=== PATIENT | female | born 1970 | race Caucasian/White ===

== ENCOUNTER 2021-08-09 17:38 | Emergency (ER) | payer BC, SELFPAY ==
--- NOTE | ~2021-08-09 | CT_ITS ---
EXAMINATION: CT brain wo con, CT facial bones wo con DATE: 08/09/2021 20:02 INDICATION: Facial injury and right-sided head pain post fall TECHNIQUE: 1. Computed tomography (CT) of the head was performed without intravenous contrast. Sagittal and dk nal reconstructions were obtained. The mA was adjusted according to patient size. Iterative reconstru ction technique was employed. The dose-length product was 605.33 mGy-cm. 2. CT of the facial bones and maxillofacial region was performed without intravenous contrast. Sagitt al and coronal reconstructions were obtained. Automated exposure control and iterative reconstruction technique were employed. The dose-length product was 310.75 mGy-cm. COMPARISON: None. FINDINGS: Head CT: Small right frontal scalp hematoma. No calvarial fracture. No acute intracranial hemorrhage, acute in farction or abnormal extra axial fluid collection. Ventricles are normal and symmetric. No mass/mass effect. Maxillofacial CT: No maxillofacial fractures. Specifically the mandible, nasal bones, zygomatic arches and santiago of the orbits and paranasal sinuses are intact. Normal alignment at the temporomandibular joints. Nasal sep claudia is midline. The mastoid air cells and middle ear cavities are clear. Mild mucosal thickening at t he floor the right maxillary sinus. Orbits are normal. IMPRESSION: 1. Small right frontal scalp hematoma. No fracture or acute intracranial process. Reviewed, dictated and finalized at location A. SWARE SELECTOR IMPRESSION: 1. Small right frontal scalp hematoma. No fracture or acute intracranial proces s.
--- NOTE | ~2021-08-09 | CT_ITS ---
EXAMINATION: CT cervical spine wo con DATE: 08/09/2021 20:02 INDICATION: Head injury post fall TECHNIQUE: Computed tomography (CT) of the cervical spine was performed without intravenous contrast. Automated exposure control and iterative reconstruction technique were employed. The dose-length pro duct was 169.50 mGy-cm. COMPARISON: None FINDINGS: Slight reversal of the normal cervical lordosis centered at C4-C5. 2 mm retrolisthesis C5 on C6. 1 mm anterolisthesis C4 on C5 and C6 on C7. Vertebral body heights are normal. No fracture. Moderate disc height loss at C5-C6 with severe bilateral uncovertebral osteoarthritis and small posterior disc ost eophyte complex. The former results in mild left-sided and moderate right-sided neural foraminal sten osis at the latter in mild central canal stenosis. Mild disc height loss at C4-C5. Moderate to severe right-sided predominant facet osteoarthritis at C2-C3 and C3-C4 and mild to moderate facet osteoarth ritis throughout the more caudal cervical spine. Cervical soft tissues are unremarkable. Mild right a pical pleural-parenchymal scarring. IMPRESSION: 1. Mild to moderate cervical spondylosis. No acute osseous abnormality. Reviewed, dictated and finalized at location A. HANDISING CONSULTANT
[2021-08-09 17:39] VITALS: BP 116/89; PULSE 63; RESP 18; TEMP 36.2; O2SAT 100
[2021-08-09 19:25] VITALS: BP 117/77; PULSE 69; RESP 14; O2SAT 100
--- NOTE | 2021-08-09 19:26 | ED.HEATRA ---
HPI - Head Injury General Chief complaint: Head Injury Stated complaint: head injury Time Seen by Provider: 08/09/21 19:15 History of Present Illness HPI Narrative: Patient presents with a head injury s/p mechanical fall 3 days ago. States she struck her head on the ground after tripping on a box. Denies LOC. Denies somnolence, confusion, vision changes or vertigo. Has intermittent headaches and nausea. Related Data Home Medications Medication Instructions Recorded Confirmed escitalopram oxalate 10 mg PO DAILY 08/09/21 Allergies Allergy/AdvReac Type Severity Reaction Status Date / Time No Known Allergies Allergy Verified 08/09/21 19:26 Review of Systems Review of Systems: All systems reviewed & are unremarkable except as noted in HPI and below Constitutional: Constitutional: Reports no additional constitutional complaints Eyes: Eyes: Reports no additional eye complaints ENT: Reports system reviewed and no additional complaints, except as documented Cardiovascular: Cardiovascular: Reports no additional cardiovascular complaints Respiratory: Respiratory: Reports no additional respiratory complaints Gastrointestinal: Gastrointestinal: Reports no additional gastrointestinal complaints Genitourinary: Genitourinary: Reports no additional female genitourinary complaints Musculoskeletal: Musculoskeletal: Reports no additional musculoskeletal complaints Integumentary/Breasts: Skin/Breast: Reports system reviewed and no additional complaints, except as docu Neurologic: Reports system reviewed and no additional complaints, except as documented Psychiatric: Psychiatric: Reports no additional psychiatric complaints Endocrine: Endocrine: Reports no additional endocrine complaints Hematologic/Lymphatic: Hematologic/Lymphatic: Reports no additional hematologic/lymphatic complaints Allergic/Immunologic: Allergic/Immunologic: Reports no additional allergic/immunologic complaints Exam Narrative: GENERAL: Well-appearing, well-nourished, and in no acute distress. HEAD: Normocephalic, tenderness with ecchymosis to right scalp/brow EYES: PERRLA and EOMI. ENT: Nares clear, no rhinorrhea or epistaxis. Mucous membranes moist. Oropharynx without tonsillar hypertrophy exudate or other lesions. Bilateral TMs pearly clemente nonbulging NECK: Supple. No adenopathy or masses. No carotid bruits or JVD CHEST: Clear to auscultation. No respiratory distress. No wheezes rales or rhonchi HEART: Regular rate and rhythm. No murmur heard. Normal peripheral pulses. ABDOMEN: Soft, nontender, nondistended, normal active bowel sounds. EXTREMITIES: Normal range of motion. No edema. SKIN: Warm, dry, no rash. NEURO: No focal deficits. Alert and oriented x3. PSYCH: Normal mood and affect. Const: General: no acute distress Orientation/consciousness: patient oriented x3 Eyes: Pupils: Equal, round and reactive pupils present Course Vital Signs Vital signs: Vital Signs Temperature 36.2 C L 08/09/21 17:39 Pulse Rate 63 08/09/21 17:39 Respiratory Rate 18 08/09/21 17:39 Blood Pressure 116/89 08/09/21 17:39 Pulse Oximetry 100 08/09/21 17:39 Temperature 36.2 C L 08/09/21 17:39 Pulse Rate 69 08/09/21 19:25 Respiratory Rate 14 08/09/21 19:25 Blood Pressure 117/77 08/09/21 19:25 Pulse Oximetry 100 08/09/21 19:25 MDM - Head Injury Imaging Data Radiologist's impression: Impressions Face CT 08/09/21 20:18 IMPRESSION: 1. Small right frontal scalp hematoma. No fracture or acute intracranial process. Head CT 08/09/21 20:18 IMPRESSION: 1. Small right frontal scalp hematoma. No fracture or acute intracranial process. Cervical Spine CT 08/09/21 20:44 IMPRESSION: 1. Mild to moderate cervical spondylosis. No acute osseous abnormality. Discharge Plan Discharge Clinical Impression: Head injury without fracture of skull Qualifiers: Encounter type: initial encounter Qual
[2021-08-09 21:23] VITALS: BP 110/81; PULSE 60; RESP 14; O2SAT 100
== END 2021-08-09 21:23 | disposition home or self-care (01) ==
PROVIDERS: Emergency Provider Nurse Practitioner Family
DX: S06.0X0A Concussion without loss of consciousness, initial encounter (principal); W18.09XA Striking against other object with subsequent fall, initial encounter
CPT/HCPCS: 70450; 70486; 72125; 99284

== ENCOUNTER 2022-08-01 10:15 | Outpatient (CLI) | payer BC, OTHER, SELFPAY ==
--- NOTE | ~2022-08-01 | MM_ITS ---
EXAMINATION: MM screening sylvia BI w caden HISTORY: Screening mammogram TECHNIQUE: Craniocaudal and mediolateral oblique 3-D tomosynthesis images were obtained and synthetic 2-D images were generated. CAD analysis was submitted and interpreted. COMPARISON: No prior mammogram is available for comparison at this institution. BREAST PARENCHYMAL COMPOSITION: There are scattered areas of fibroglandular density. FINDINGS: Several circumscribed opacities in the posterior outer mid right breast measuring up to 4.4 mm are most consistent with benign intramammary lymph nodes. There is no evidence of suspicious mass , calcification, or architectural distortion to suggest malignancy in either breast. There has been n o suspicious interval change. IMPRESSION: 1. No mammographic evidence of malignancy. 2. Recommend routine screening mammography in one year. BI-RADS Category 2: Benign finding(s). Reviewed, dictated and finalized at location A. PHYSICIAN
== END 2022-08-01 10:16 | disposition home or self-care (01) ==
DX: Z12.31 Encounter for screening mammogram for malignant neoplasm of breast (principal)
CPT/HCPCS: 77063; 77067

== ENCOUNTER 2023-11-20 08:45 | Outpatient (CLI) | payer BC, OTHER, SELFPAY ==
--- NOTE | ~2023-11-20 | MM_ITS ---
EXAMINATION: MM screening sylvia BI w caden HISTORY: Screening TECHNIQUE: Craniocaudal and mediolateral oblique 3-D tomosynthesis images were obtained and synthetic 2-D images were generated. CAD analysis was submitted and interpreted. COMPARISON: 08/01/2022 BREAST PARENCHYMAL COMPOSITION: There are scattered areas of fibroglandular density. FINDINGS: There are developing asymmetries in the upper outer quadrant of the right breast and lower outer quadrant of the left breast. IMPRESSION: 1. Developing bilateral breast asymmetries. 2. Additional mammographic views and possible breast ultrasound are recommended. BI-RADS Category 0: Incomplete: Needs additional imaging evaluation. Reviewed, dictated and finalized at location B. IMPRESSION: 1. Developing bilateral breast asymmetries. 2. Additional mammographic views and possible breast ultrasound are recommended . BI-RADS Category 0: Incomplete: Needs additional imaging evaluation.
== END 2023-11-20 08:46 | disposition home or self-care (01) ==
PROVIDERS: PCP Family Medicine Sports Medicine
DX: Z12.31 Encounter for screening mammogram for malignant neoplasm of breast (principal); R92.8 Other abnormal and inconclusive findings on diagnostic imaging of breast
CPT/HCPCS: 77063; 77067

== ENCOUNTER 2023-12-12 10:16 | Outpatient (CLI) | payer BC, OTHER, SELFPAY ==
--- NOTE | ~2023-12-12 | MMUS_ITS ---
EXAMINATION: MM diagnostic sylvia BI w caden, US breast BI limited HISTORY: Follow-up bilateral breast abnormalities. TECHNIQUE: Additional 3-D tomosynthesis images of the breasts were performed and synthetic 2-D images were generated. CAD analysis was submitted and interpreted. High resolution limited bilateral breast ultrasound was performed. COMPARISON: None Comparison to multiple prior studies sequentially, with oldest reviewed study dated 08/01/2022. BREAST PARENCHYMAL COMPOSITION: Not dense: There are scattered areas of fibroglandular density. FINDINGS: MAMMOGRAPHIC FINDINGS: There are persistent bilateral breast asymmetries. There is a benign-appearing intramammary lymph nod e in the upper outer quadrant of the right breast. There are no suspicious calcifications or architec tural distortion. ULTRASOUND: Limited right breast ultrasound: There are mildly prominent ducts of the right breast. There is a nor mal-appearing intramammary lymph node at 9:00, 5 cm from the nipple measuring 1 cm. Limited left breast ultrasound: Mildly prominent ducts. Normal appearing 7 mm intramammary lymph node at 3:00, 9 cm from the nipple with fatty hilum. No suspicious mass in either breast to suggest malig rafael. IMPRESSION: 1. No evidence for malignancy in either breast. Benign findings. 2. Routine yearly screening mammogram and regular clinical breast examination are recommended. BI-RADS Category 2: Benign finding(s). Reviewed, dictated and finalized at location B. IMPRESSION: 1. No evidence for malignancy in either breast. Benign findings. 2. Routine yearly screening mammogram and regular clinical breast examination a re recommended. BI-RADS Category 2: Benign finding(s).
== END 2023-12-12 10:17 | disposition home or self-care (01) ==
PROVIDERS: PCP Family Medicine Sports Medicine
DX: R92.8 Other abnormal and inconclusive findings on diagnostic imaging of breast (principal)
CPT/HCPCS: 76642; 77062; 77066; G0279

== ENCOUNTER 2024-10-28 16:43 | Emergency (ER) | payer BC, OTHER, SELFPAY ==
--- NOTE | ~2024-10-28 | XR_ITS ---
EXAMINATION: XR chest 2V Exam Date/Time: 10/28/2024 17:00 CDT HISTORY: CP-epigastric Comparison: None. RESULT: Lines, tubes, and devices: None. Lungs and pleura: No focal consolidation, pleural effusion, or pneumothorax. Minimal bibasilar scar/ atelectasis. Cardiomediastinal silhouette: Unremarkable. Other: No acute osseous or upper abdominal finding. IMPRESSION: No acute cardiopulmonary process. Reviewed, dictated and finalized at location K.
--- NOTE | 2024-10-28 16:46 | ECG_ITS ---
Test Date: 2024-10-28 17:01:19 Measurements Intervals [place] Rate: 86 P: 74 MI: 123 QRS: 66 QRSD: 90 T: 57 QT: 358 QTc: 428 Interpretive Statements SINUS RHYTHM NORMAL ELECTROCARDIOGRAM No previous ECG available for comparison Electronically Signed On 10-29-2024 07:17:11 CDT by Jeffry Waller M.D.
--- OUTSIDE RECORDS SUMMARY | 2024-10-28 16:47 | XMS_ITS | Referral Summary ---
Author Organization [facility] Address [address] [place] [id number] Care Team Providers Care Band Instrument Repairer Name Role Phone Kapil Sommers MD Primary Care Provi nawaf Encounters Date Type Department Care Team Description 10/06/2024 3:15 PM CDT Office Visit [facility] Primary Care at [address] [phone] Kapil Sommers MD Atypical chest pain (Primary Dx); Nausea and vomiting, unspecified vomiting type; Heartburn 10/06/2024 Nurse Triage [facility] Primary Care at [address] [phone] Kapil Sommers MD 09/21/2024 Results Follow-Up [facility] Primary Care at [address] [phone] Kapil Sommers MD 09/17/2024 2:52 PM CDT - 09/17/2024 11:59 PM CDT Hospital Encounter [address] [address] Screening for hyperlipidemia; Vitamin D deficiency Discharge Disposition: Discharge to home or self care 09/17/2024 8:15 AM CDT Lab [facility] Outpatient Lab at [address] [phone] 08/29/2024 Telephone [facility] Cancer Genetics Department [address] [place] [address] Elle Gamez, MS Test Results from Last 3 Months Allergies No known active allergies Medications cholecalciferol , vitamin D3, (VITAMIN D3 ORAL) Take by mouth Active semaglutide (OZEMPIC) 0.25 mg or 0.5 mg(2 mg/1.5 mL) pen injector injection Inject 0.25 mg under the skin every 7 days Active escitalopram (LEXAPRO) 20 mg tablet TAKE 1 TABLET(20 MG) BY MOUTH DAILY 90 tablet 06/15/2024 Active vitamin B complex capsule Take 1 capsule by mouth daily Active pantoprazole DR (PROTONIX) 40 mg EC tabletIndicatio ns:Heartburn Take 1 tablet (40 mg total) by mouth daily 30 tablet 2 10/06/2024 Active Active Problems Problem Noted Date Diagnosed Date Atypical chest pain 10/06/2024 Assessment & Plan (10/06/2024 3:44 PM CDT): Nausea and vomiting 10/06/2024 Assessment & Plan (10/06/2024 3:44 PM CDT): Heartburn 10/06/2024 Assessment & Plan (10/06/2024 3:44 PM CDT): Orders: pantoprazole DR (PROTONIX) 40 mg EC tablet; Take 1 tablet (40 mg total) by mouth daily Need for tetanus booster 07/08/2024 Routine adult health maintenance 07/08/2024 Major depressive disorder, recurrent, mild 04/24 NGOC (generalized anxiety disorder) 04/24/2023 Resolved Problems Problem Noted Date Diagnosed Date Resolved Date Routine physical examination 04/24/2023 04/24/2023 Melanocytic neoplasm of skin 12/05/2016 07/08/2024 Overview (07/07/2024): 04/2015 atyp jcn elijah prolif-L upper chest-[place], 05/2011 atyp cmpd elijah prolif, R ant neck-[place] Actinic keratosis 11/18/2016 03/10/2023 Immunizations Immunization Administration Dates Next Due Influenza, Quadrivalent, Emma l Culture-based MDCK, Preservative Free, Antibiotic Free, Intramuscular 04/14/2021 Influenza, Quadrivalent, Spl it, Preservative Free, Intramuscular 04/24/2023,04/18/2022,04/20/2020,04/21 Influenza, Trivalent, Preser vative Free, Intramuscular 04/25/2024 Influenza, Unspecified 04/25/2024,04/24/2023 Tdap 07/08/2024 ZOSTER Recombinant 11/15/2021,06/28/2021 Social History Tobacco Use Types Packs/Day Years Used Date Smoking Tobacco: Never Smokeless Tobacco: Never Tobacco Cessation:Counseling Given: Not Answered AUDIT-C Answer Date Recorded Q1: How often do you have a drink containing alcohol? Never 07/09/2024 Q2: How many drinks containi ng alcohol do you have on a typical day when you are drinking? Patient does not drink Q3: How often do you have si x or more drinks on one occasion? 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[employer] Not on file Not on file Not on file Last Filed Vital Signs Vital Sign Reading Time Taken Comments Blood Pressure 120/74 10/06/2024 3:10 PM CDT Pulse 80 10/06/2024 3:10 PM CDT Temperature 36.6 C (97.9 F) 10/06/2024 3:10 PM CDT Respiratory Rate 18 07/09/2024 9:02 AM TRANSFORMER SHOP SUPERVISOR Oxygen Saturation 98% 10/06/2024 3:10 PM CDT Inhaled Oxygen Concentration - - Weight 66.7 kg (147 lb 1.6 oz) 10/06/2024 3:10 P M CDT Height 157.5 cm (5' 2 ) 10/06/2024 3:10 PM CDT Body Mass Index 26.9 10/06/2024 3:10 PM CDT Plan of Treatment Not on file Procedures Procedure Name Priority Date/Time Associated Diagnosis Comments EGFR Routine 09/17/2024 12:00 PM CDT Screening for hyperlipidemia VITAMIN D 25 HYDROXY Routine 09/17/2024 12:00 PM CDT Vitamin D deficiency LIPID PANEL Routine 09/17/2024 12:00 PM CDT Screening for hyperlipidemia COMPREHENSIVE METABOLIC PANEL Routine 09/17/2024 12:00 PM CDT Screening for hyperlipidemia HM MAMMOGRAPHY Routine 12/19/2023 8:28 AM CDT STOOL DNA COLOGUARD Routine 06/12/2023 10:00 AM TRANSFORMER SHOP SUPERVISOR Screen for colon cancer HEPATITIS C ANTIBODY Routine 04/24/2023 11:02 AM CDT Routine physical examination Encounter for hepatitis C screening test for low risk patient from Last 3 Months or Most Recently Relevant to Health Maintenance Results * eGFR (09/17/2024 12:00 PM CDT) eGFR >90 >=60 mL/min/1. 73 m2 Comment: Interpretive Data Reference Interval Normal >/= 90 mL/min/1.73m2 Mildly decreased* 60 - 89 mL/min/1.73m2 Mildly to moderately decreased 45 - 59 mL/min/1.73m2 Moderately to severely decreased 30 - 44 mL/min/1.73m2 Severely decreased 15 - 29 mL/min/1.73m2 Kidney Failure < 15 mL/min/1.73m2 *Relative to young adult level Estimated glomerular filtration rate is determined by the 2020 CKD-EPI equation recommended by the National Kidney Foundation (A Unifying Approach to GFR Estimation: Recommendations of the NKF-ASK Task Force on Reassessing the Inclusion of Race in Diagnosing Kidney Disease, JASN 2020). The CKD-EPI equation should not be used for patients with unstable renal function and has not been validated in children and those over 70. Current interpretive data was last reviewed 2021. Blood 09/17/2024 12:0 0 PM CDT 09/17/2024 3:51 PM CDT Kapil Sommers MD LAB BLOOD ORDERABLE S Final Result Performing Organization Address [facility] Co de Phone Number KESHA REYNOSO [address] [facility] [place] [address] * Vitamin D 25 hydroxy (09/17/2024 12:00 PM CDT) Vitamin D 25-OH 65 30 - 80 ng/mL Blood 09/17/2024 12:0 0 PM CDT 09/17/2024 3:32 PM CDT Kapil Sommers MD LAB BLOOD ORDERABLE S Final Result Performing Organization Address [facility] de Phone Number KESHA REYNOSO [address] [address] [facility] [place] [address] * Lipid panel (09/17/2024 12:00 PM CDT) Cholesterol 188 30 - 199 mg/dL Comment: Interpretive Data Ages < or = 19 years Acceptable: <170 mg/dL Borderline high: 170-199 mg/dL High: >or= 200 mg/dL Ages > or = 20 years Desirable: <200 mg/dL Borderline high: 200-239 mg/dL High: >or= 240 mg/dL Literature References: 1. Expert Panel on Integrated Guidelines for Cardiovascular Health and Risk Reduction in Children and Adolescents. Pediatrics 2011;128:S213 2. NCEP Expert Panel. Circulation 2004;110:227 Current Interpretive Data was last revised on 2018. Triglycerides 68 <=149 mg/dL KESHA REYNOSO Comment: Interpretive Data Ages < or = 9 years Acceptable: <75 mg/dL Borderline high: 75-99 mg/dL High: >or= 100 mg/dL Ages 10 to 20 years Acceptable: <90 mg/dL Borderline high: 90-129 mg/dL High: >or= 130 mg/dL Ages > or = 20 years Desirable: <150 mg/dL Borderline high: 150-199 mg/dL High: 200-499 mg/dL Very high: >or= 499 mg/dL Literature References: 1. Expert Panel on Integrated Guidelines for Cardiovascular Health and Risk Reduction in Children and Adolescents. Pediatrics 2011;128:S213 2. NCEP Expert Panel. Circulation 2004;110:227 Current Interpretive Data was last revised on 2018. HDL 82 >=40 mg/dL KESHA REYNOSO Comment: Interpretive Data Ages < or = 19 years Acceptable: >45 mg/dL Borderline low: 40-45 mg/dL Low: <40 mg/dL Ages > or = 20 years Desirable: >or= 60 mg/dL Low: <40 mg/dL Literature References: 1. Expert Panel on Integrated Guidelines for Cardiovascular Health and Risk Reduction in Children and Adolescents. Pediatrics 2011;128:S213 2. NCEP Expert Panel. Circulation 2004;110:227 Current Interpretive Data was last revised on 2018. LDL, calculated 93 <=129 mg/dL KESHA REYNOSO Comment: Interpretive Data Ages < or = 19 years Acceptable: <110 mg/dL Borderline high: 110-129 mg/dL High: >or= 130 mg/dL Ages > or = 20 years Optimal: <100 mg/dL Near optimal: 100-129 mg/dL Borderline high: 130-159 mg/dL High: >160 mg/dL Calculated using the Fabiano LDL-C estimating equation. This equation was implemented on 2024. Prior to this date LDL-C was estimated using the Friedewald equation. Literature References: 1. Expert Panel on Integrated Guidelines for Cardiovascular Health and Risk Reduction in Children and Adolescents. Pediatrics 2011;128:S213 2. NCEP Expert Panel. Circulation 2004;110:227 3. Fabiano Orlando al. MIGUEL Cardiol. 2020 October 23;5(5):540-548. doi: 10.1001/[email or web address] Current Interpretive Data was last revised on 2024. Non-HDL Cholesterol 106 mg/dL KESHA REYNOSO Comment: Interpretive Data Ages < or = 19 years Acceptable: <120 mg/dL Borderline high: 120-144 mg/dL High: >145 mg/dL Ages > or = 20 years When triglycerides are >200 mg/dL, Non-HDL cholesterol is a secondary target of therapy with treatment goals that are 30 mg/dL greater than the LDL cholesterol target. Literature References: 1. Expert Panel on Integrated Guidelines for Cardiovascular Health and Risk Reduction in Children and Adolescents. Pediatrics 2011;128:S213 2. NCEP Expert Panel. Circulation 2004;110:227 Current Interpretive Data was last revised on 2018. Chol/HDL ratio 2 [facility] Blood 09/17/2024 12:0 0 PM CDT 09/17/2024 3:32 PM CDT us Kapil Sommers MD LAB BLOOD ORDERABLE S Final Result [facility] [address] Department [place] [address] * (ABNORMAL) Comprehensive metabolic panel (09/17/2024 12:00 PM CDT) Sodium 138 135 - 145 mmol/L Potassium, pl 4.3 3.3 - 4.9 mmol/L [facility] Chloride 103 97 - 110 mmol/L [facility] CO2 25 22 - 32 mmol/L [facility] Anion gap 10 2 - 15 mmol/L [facility] BUN 19 6 - 25 mg/dL [facility] Creatinine 0.71 0.60 - 1.10 mg/dL [facility] Comment:Icteric sample, test results may be affected. Glucose 86 70 - 199 mg/dL CERNER Comment: Interpretive Data Fasting glucose >/= 126 mg/dl is diagnostic for diabetes. Fasting is defined as no caloric intake for at least 8 hours. Fasting glucose between 100 mg/dl to 125 mg/dl is diagnostic of prediabetes. In a patient with classic symptoms of hyperglycemia or hyperglycemic crisis, a random glucose >/= 200 mg/dl is diagnostic for diabetes. In the absence of unequivocal hyperglycemia, results should be confirmed by repeat testing. The classification and Diagnosis of Diabetes Diabetes Care 2021; 46: S19-S40. Current interpretive data was last revised 2022. Calcium 8.9 8.5 - 10.3 mg/dL [facility] Bilirubin, total 1.3(H) 0.1 - 1.2 mg/dL [facility] Protein, pl 6.6 6.5 - 8.5 g/dL [facility] Albumin 4.0 3.5 - 5.0 g/dL [facility] Alk phos 55 40 - 130 Units/L [facility] ALT 29 7 - 45 Units/L [facility] AST 31 10 - 45 Units/L [facility] Blood 09/17/2024 12:0 0 PM CDT 09/17/2024 3:32 PM CDT Kapil Sommers MD LAB BLOOD ORDERABLE S Final Result KESHA REYNOSO [address] Department [place] [address] * HM MAMMOGRAPHY (12/19/2023 8:28 AM CDT) Mammography Normal Lida Dorman MD HEALTH MAINTENANCE F inal Result * Stool DNA - Cologuard (06/12/2023 10:00 AM TRANSFORMER SHOP SUPERVISOR) Stool DNA - Cologuard Negative Negative [employer] (CLIA #:[id number]) Comment: NEGATIVE TEST RESULT. A negative Cologuard result indicates a low likelihood that a colorectal cancer (CRC) or advanced adenoma (adenomatous polyps with more advanced pre-malignant features) is present. The chance that a person with a negative Cologuard test has a colorectal cancer is less than 1 in 1500 (negative predictive value >99.9%) or has an advanced adenoma is less than 5.3% (negative predictive value 94.7%). These data are based on a prospective cross-sectional study of 10,000 individuals at average risk for colorectal cancer who were screened with both Cologuard and colonoscopy. (Faina Leigh al, N Engl J Med 2014;370(14):0882-5853) The normal value (reference range) for this assay is negative. COLOGUARD RE-SCREENING RECOMMENDATION: Periodic colorectal cancer screening is an important part of preventive healthcare for asymptomatic individuals at average risk for colorectal cancer. Following a negative Cologuard result, the [place] [employer] Society and U.S. Multi-Society Task Force screening guidelines recommend a Cologuard re-screening interval of 3 years. References: [place] [employer] Guideline for Colorectal Cancer Screening: https://www.cancer.org/cancer/ezcan-zvowwj-ztepye/wbmtsnbkd-yetjlkwic-zmhxrit/ac s-rec ommendations.html.; Caleb DK, Travon CR, Cristóbal MossK, Colorectal Cancer Screening: Recommendations for Physicians and Patients from the U.S. Multi-Society Task Force on Colorectal Cancer Screening , Am J Gastroenterology 2017; 112:7679-1543. TEST DESCRIPTION: Composite algorithmic analysis of stool DNA-biomarkers with hemoglobin immunoassay. Quantitative values of individual biomarkers are not reportable and are not associated with individual biomarker result reference ranges. Cologuard is intended for colorectal cancer screening of adults of either sex, 45 years or older, who are at average-risk for colorectal cancer (CRC). Cologuard has been approved for use by the U.S. FDA. The performance of Cologuard was established in a cross sectional study of average-risk adults aged 50-84. Cologuard performance in patients ages 45 to 49 years was estimated by sub-group analysis of near-age groups. Colonoscopies performed for a positive result may find as the most clinically significant lesion: colorectal cancer [4.0%], advanced adenoma (including sessile serrated polyps greater than or equal to 1cm diameter) [20%] or non- advanced adenoma [31%]; or no colorectal neoplasia [45%]. These estimates are derived from a prospective cross-sectional screening study of 10,000 individuals at average risk for colorectal cancer who were screened with both Cologuard and colonoscopy. (Faina Leigh al, N Engl J Med 2014;370(14):4216-7132.) Cologuard may produce a false negative or false positive result (no colorectal cancer or precancerous polyp present at colonoscopy follow up). A negative Cologuard test result does not guarantee the absence of CRC or advanced adenoma (pre-cancer). The current Cologuard screening interval is every 3 years. ([place] [employer] Society and U.S. Multi-Society Task Force). Cologuard performance data in a 10,000 patient pivotal study using colonoscopy as the reference method can be accessed at the following location: www.[employer].com/results. Additional description of the Cologuard test process, warnings and precautions can be found at www.colPayTouchrd.com. Stool 06/12/2023 10:0 0 AM TRANSFORMER SHOP SUPERVISOR 06/13/2023 3:58 PM TRANSFORMER SHOP SUPERVISOR Terese Gomez MD LAB BODY FLUIDS AND ST OOLS ORDERABLES Final Result Performing Organization Address [facility] Co de Phone Number [facility] (CLIA #:[id number]) [address] [address] * Hepatitis C antibody Blood (04/24/2023 11:02 AM CDT) Hep C Ab Nonreactive Nonreactive KESHA REYNOSO Comment: Interpretive Data Nonreactive: Antibodies to HCV not detected. Does NOT exclude the possibility of recent exposure to HCV. Equivocal: Equivocal for HCV antibodies. Supplemental molecular testing will be automatically performed to determine infection status in accordance with current CDC screening recommendations. Reactive: Positive for HCV antibodies. This may represent current or past HCV infection. Supplemental molecular testing will be automatically performed to determine current infection status in accordance with current CDC screening recommendations. Interpretive data was last revised on 2019. Blood 04/24/2023 11:0 2 AM CDT 04/24/2023 2:27 PM CDT Terese Gomez MD LAB MICROBIOLOGY - GEN ERAL ORDERABLES Final Result Performing Organization Address [facility] de Phone Number [facility] [address] Department [place] [address] from Last 3 Months or Most Recently Relevant to Health Maintenance Insurance [facility] PPO [facility] HMO/PPO Address: [facility] [address] [place] [address] [facility] CHOICE PLUS [facility] Sensus [facility] PPO Care Teams Band Instrument Repairer Relationship Specialty Start Date End Date Kapil Sommers MD [address] [place] [address] PCP - General Family Practice 07/07/24
--- OUTSIDE RECORDS SUMMARY | 2024-10-28 16:47 | XMS_ITS | Data Portability ---
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 Pt reassured. Discussed no treatment needed. Allergic contact dermatitis consistent with rhus dermatitis, R arm and L lower leg-improving agree with completing course of prednisone recommend TMC 0.1 cr BID x 2-3 wks until resolved Benign nevi-discussed not suspicious History of atypical junctional melanocytic proliferation. no evidence of recurrence fbse 1 yr Photoprotection discussed. Use of a broad-spectrum sunscreen SPF 30 or higher recommended. 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 -recommend topical 5FU cream to affected areas bid x 2 weeks -site to treat: upper cutaneous lip, L nose, L cheek -verbal and written instruction were given recommend use of Vaseline to lips prior to each application to avoid accidental spread Angioma - diagnosis reviewed. Patient reassured. Discussed no treatment needed. Benign nevi-discussed not suspicious First degree sunburn arms Discussed diagnosis Recommend strict photoprotection and sunscreen use History of atypical junctional melanocytic proliferation. no evidence of recurrence fbse 1 yr Photoprotection discussed. Use of a broad-spectrum sunscreen SPF 30 or higher recommended. Not available 01/08/2022 17:44:00 01/29/2023 01/29/2023 Allergic contact dermatitis-flaring on abdomen and R proximal anterior thigh DIscussed diagnosis Discussed unclear if initial trigger rhus dermatitis or developed allergy to leggings or phone case or other trigger. Recommend clobetasol 0.05 cr BID x 2 wks with current flare Recommend call for referral for skin allergy testing if continuing to recur Not available 01/29/2023 10:01:00 07/03/2023 07/03/2023 Benign nevi-discussed not suspicious Recommend monitor for changes. Seborrheic keratoses - diagnosis reviewed. Pt reassured. Discussed no treatment needed. Angioma - diagnosis reviewed. Patient reassured. Discussed no treatment needed. History of atypical junctional melanocytic proliferation. no evidence of recurrence fbse 1 yr Photoprotection discussed. Use of a broad-spectrum sunscreen SPF 30 or higher recommended. Not available 07/03/2023 15:16:06 08/05/2024 08/05/2024 Actinic keratosi s L frontal hairline - precancerous diagnosis reviewed. cryo therapy x 1 sites treated: L frontal hairline Epidermal cyst, noninflamed, L infraocular- diagnosis reviewed. Discussed no treatment needed. Seborrheic keratoses - diagnosis reviewed. Pt reassured. Discussed no treatment needed. Resolved irritant dermatitis history R cheek Discussed clear on examination Reassurance Benign nevi-discussed not suspicious Recommend monitor for changes. History of atypical junctional melanocytic proliferation. No evidence of recurrence fbse 1 yr Photoprotection discussed. Use of a broad-spectrum sunscreen SPF 30 or higher recommended. Not available 08/10/2024 18:32:04 Plan of Treatment Reminders Order Date Submit Date Provider Last Modified By Organization Details Last Modified Time Details Appointments None recorded. Lab None recorded. Referral None recorded. Procedures None recorded. Surgeries None recorded. Imaging None recorded. Medication Orders clobetasol 0.05 % topical cream 2022 023 [id number], [address], [place], [id number], 10:01:59 Efudex 5 % topical cream 2021 022 [facility][id number], [address] [place], [place], [id number], 18:17:18 Patient TargetsNo targets recorded. Patient Instructions Encounter Date Encounter Id Patient Instructions Last Modified By Organization Details Last Modified Time 01/03/2022 [id number] Topical fluorouracil side effects were discussed with emphasis on redness, crusting, erosions, and pain. Avoid the sun. Call the office if you experience severe side effects or have questions. Not available 01/03/2022 10:28:39 Reason for Referral None Reported. Problems Name Problem SNOMED Code Status Onset Date Resolution Date Notes Provider Name and Address Organization Details Recorded Time Actinic keratosis Active 2016 Lamar Emanuel MD [address] [place] [address], [address], [place], [address], DARREN Emanuel MD 7 23:15:22 Melanocytic neoplasm 953919831 Active 2016 5 atyp jcn elijah prolif -L upper chest- [place], 1 atyp cmpd elijah prolif , R ant neck-T adjall i Lamar Emanuel MD [address] [place] [address], [address], [place], [address], DARREN Emanuel MD 7 00:02:20 Problem Notes None recorded. Procedures Surgical History Date Name Laterality Status Provider Name and Address Organization Details Recorded Time 08/05/19 25 Cryosurgery aks completed Lamar Emanuel MD [address] [place] [address], [address], [place], [address], DARREN Emanuel MD 08/10/2024 18:32:11 11/17/19 17 Biopsy completed Loren Emanuel MD 11/16/2016 16:49:37 11/17/19 17 Cryosurgery aks completed Lamar Emanuel MD [address] [place] [address], [address], [place], [address], DARREN Emanuel MD 11/18/2016 23:16:33 Imaging Results None recorded. Procedure Notes None recorded. Medical Equipment None Reported. Allergies No known drug allergies Medications Name Sig Start Date Stop Date Status Note LastModified by Organization Details LastModified Time azithromyci n 250 mg tablet TAKE 2 TABLETS BY MOUTH TODAY, THEN TAKE 1 TABLET DAILY FOR 4 DAYS 11/02 completed Not Available Not Available Not Available prednisone 20 mg tablet 01/03 completed Not Available Not Available Not Available clobetasol 0.05 % topical cream APPLY A THIN LAYER TOPICALLY ON THE STOMACH AND THIGH WITH FLARES TWICE DAILY FOR UP TO 2 WEEKS active Not Available Not Available No t Available sulfamethox azole 800 mg-trimetho prim 160 mg tablet TAKE 1 TABLET BY MOUTH TWICE DAILY active Not Available Not Available No t Available tramadol 50 mg tablet TAKE 1-2 TABLETS ORALLY EVERY 6-8 HRS *MAX 6 DAILY 7 DAYS 01/29 completed Not Available Not Available Not Available triamcinolo ne acetonide 0.1 % topical cream APPLY TOPICALLY TO THE AFFECTED AREA TWICE DAILY FOR 1 TO 2 WEEKS NEEDED active Not Available Not Available No t Available fluorouraci l 5 % topical solution Use a thin layer to the areas on the upper lip and to sites on the L nose and the L cheek BID x 2 wks active Not Available Not Available No t Available Efudex 5 % topical cream Use a thin layer above the upper lip and to sites L nose and L cheek BID x 2 wks 01/05 completed Not Available Not Available Not Available ketorolac 10 mg tablet active Not Available Not Available Not Available lorazepam 0.5 mg tablet TAKE 1 TABLET BY MOUTH FOUR TIMES A DAY NEEDED 01/03 completed Not Available Not Available Not Available triamcinolo ne acetonide 0.025 % topical cream APPLY A THIN LAYER TO THE chest BY TOPICAL ROUTE 2 TIMES PER DAY for 2 weeks 02/25 completed Not Available Not Available Not Available oxycodone-a cetaminophe n 10 mg-325 mg tablet TAKE 1 TO 2 TABLETS NEEDED ORALLY EVERY 6-8 HOURS, MAX 6 DAILY 7 DAYS 01/29 completed Not Available Not Available Not Available cephalexin 500 mg capsule 07/03 completed Not Available Not Available Not Available neomycin-po lymyxin-dex ameth 3.5 mg/mL-10,00 0 unit/mL-0.1 % eye drops 02/25 completed Not Available Not Available Not Available fluoxetine 10 mg capsule TAKE 1 CAPSULE BY MOUTH DAILY FOR 7 DAYS THEN TAKE 2 CAPSULES BY MOUTH DAILY active Not Available Not Available No t Available methylpredn isolone 4 mg tablets in a dose pack 11/02 completed Not Available Not Available Not Available escitalopra m 10 mg tablet TAKE 1 TABLET BY MOUTH DAILY 01/03 completed Not Available Not Available Not Available escitalopra m 20 mg tablet TAKE 1 TABLET BY MOUTH EVERY DAY active Not Available Not Available No t Available bupropion HCl XL 300 mg 24 hr tablet, extended release 11/02 completed Not Available Not Available Not Available ID NOW COVID-19 Test Kit TEST DIRECTED 01/03 completed Not Available Not Available Not Available semaglutide (weight loss) 0.5 mg/0.5 mL subcutaneou s pen injector Inject by subcutane ous route. active Not Available Not Available No t Available Vitals None Recorded Social History Question Answer Notes LastModified by Organizat ion Details LastModified Time Tobacco Smoking Status Never Smoker DARREN Reed MD 11/16/2016 15:59:40 What Is Your Level Of Alcohol Consumption? Moderate Information not available 11/16/2016 In The 14 Days Before Symptom Onset, Have You Had Close Contact With A Laboratory-confir med COVID-19 While That Case Was Ill? No [email or web address] Information not available 11/02/2020 In The 14 Days Before Symptom Onset, Have You Had Close Contact With A Person Who Is Under Investigation For COVID-19 While That Person Was Ill? No [email or web address] Information not available 11/02/2020 Have You Been To An Area Known To Be High Risk For COVID-19? No [email or web address] Information not available 11/02/2020 Do You Or Have You Ever Used E-cigarettes Or Vape? Never Used Electronic Cigarettes [email or web address] Information not available 11/02/2020 Does Patient Have Any Fever, Cough, Sore Throat Or New Shortness Of Breath? No [email or web address] Information not available 11/02/2020 What Was The Date Of Your Most Recent Tobacco Screening? 08/05/2024 [email or web address] Information not available 08/05/2024 Do You Or Have You Ever Used Smokeless Tobacco? Never Used Smokeless Tobacco [email or web address] Information not available 11/02/2020 How Much Tobacco Do You Smoke? No [email or web address] Information not available 11/02/2020 Sun Exposure Moderate Information not available 11/16/2016 Do You Use Sunscreen Routinely? Yes Information not available 11/16/2016 Tanning Bed Exposure No Information not available 11/16/2016 Sex: Unknown Functional Status None recorded. Mental Status None recorded. Family History Relationship Description Onset Age of this Age Resolved Age Notes LastModified by Organization Details LastModified Time Son Diabetes mellitus Not available 2016 15:59:22 Sister Malignant tumor of breast Not available 2016 15:59:34 Maternal Aunt Malignant tumor of breast Not available 2016 15:59:34 Paternal Aunt Malignant tumor of breast Not available 2016 15:59:34 Medical History Condition Response Hyperthyroidism N Hypothyroidism N Pacemaker N Arthritis N Cancer N Stroke N HIV/AIDS N Defibrillator N Anemia N Diabetes N Bleeding Disorder N Asthma N Lupus N Psoriasis N Hepatitis N Heart Disease N Hypertension N Gynecological HistoryNo gynecological history recorded. Obstetrics History GPAL:G 0 P 0 0 0 0 Past Encounters Encounter ID Performer Location Encounter Start Date Encounter Closed Date Diagnosis/Indication Diagnosis SNOMED-CT Code Diagnosis ICD10 Code Diagnosis Note [id number] Lamar Emanuel MD Main Office [address] [place] [address] 11/16/2016 15:49:25 11/16/2016 16:36:53 Neoplasm of uncertain behavior of skin 14649911 D48.5 Actinic keratosis 007 L57.0 Melanocyti c nevus of trunk 189653338 D22.5 Melanocyti c nevus of skin of thigh 821498957 D22.72 [id number] Lamar Emanuel MD Main Office [address] [place] [address] 11/20/2017 11:13:50 11/20/2017 11:52:13 Eczema 10864595 L20.84 Melanocyti c nevus of trunk 758687418 D22.5 Senile purpura 41348958 D69.2 Melanocyti c nevus of upper limb 370895182 D22.61 [id number] Lamar Emanuel MD Main Office [address] [place] [address] 02/25/2019 16:10:37 02/25/2019 17:18:55 Actinic keratosis 545569879 L57.0 Melanocyti c nevus of trunk 092230534 D22.5 Melanocyti c nevus of upper limb 162921974 D22.61 Melanocyti c nevus of skin of thigh 411294018 D22.71 [id number] Lamar Emanuel MD Main Office [address] [place] [address] 11/02/2020 11:03:59 11/02/2020 12:01:09 Senile hyperkeratosis 042581701 L82.1 Allergic c ontact dermatitis 958736557 L23.9 Melanocyti c nevus of trunk 459306789 D22.5 Melanocyti c nevus of skin of thigh 977345302 D22.72 [id number] Lamar Emanuel MD Main Office [address] [place] [address] 7 01/03/2022 09:42:24 01/03/2022 10:24:52 Actinic keratosis 191635756 L57.0 Hemangioma of skin 93045 006 D18.01 Melanocyti c nevus of upper limb 174725223 D22.62 Sunburn of first degree 042745169 L55.0 [id number] Lamar Emanuel MD Main Office [address] [place] [address] 01/29/2023 09:36:36 01/29/2023 10:09:40 Allergic contact dermatitis 736077910 L23.9 [id number] Lamar Emanuel MD Main Office [address] [place] [phone] 7 07/03/2023 14:54:30 07/03/2023 15:27:38 Melanocytic nevus of trunk 156039332 D22.5 Seborrheic keratosis 394 426984 L82.1 [id number] Lamar Emanuel MD Main Office [address] [facility] [address] [place] [address] 08/05/2024 13:52:06 08/05/2024 14:26:14 Actinic keratosis 099253656 L57.0 Epidermoid cyst of skin 422229015 L72.0 Seborrheic keratosis 394 426493 L82.1 Melanocyti c nevus of trunk 472154615 D22.5 Health Concerns Section Related Observation LastModified by Organization Detai ls LastModified Time None Recorded Concern Status LastModified by Organization Details LastModified Time None Recorded Advance Directives Directive None Recorded Payers Encounter Date Sequence Insurance Name Policy Number Policy Miller Covered Member ID Miller Member ID Guarantor Name 11/02/2020 2 [place] [id number] Dav Galicia [id number] Genet Galicia 11/02/[address] [facility] [id number] Genet Vu Grayson [id number] Genet Galicia 01/03/2022 2 [place] [id number] Dav Galicia [id number] Genet Galicia 01/03/2022 1 [place] [id number] Genet Galicia [id number] Genet Galicia 01/29/2023 1 [place] [id number] Genet Vu Grayson [id number] Genet Galicia 01/29/2023 2 [employer] [place] [id number] Dav Galicia [id number] Genet Galicia 07/03/2023 1 [place] [id number] Genet Galicia [id number] Genet Galicia 07/03/2023 2 [employer] [place] [id number] Dav Galicia [id number] Genet Galicia 08/05/2024 1 [place] [id number] Genet Galicia [id number] Genet Galicia 08/05/2024 2 [employer] [place] [id number] Dav Galicia [id number] Genet Galicia Notes Date Note Type Note Provider Name and Address Organization Details Recorded Time 11/02/2020 text/html COVID-19 protoco l. Patient and any caregivers present screened to confirm no fever, cough, loss of taste or smell, or shortness of breath. Patient and any caregivers deny current diagnosis or pending testing of COVID-19 or recent exposure to any individual with known or current testing for COVID-19. Patient and any caregivers masked during visit. full body check spot L flankx 2-3 monthsscabsnot treating pt states she had poison miquel 1 month ago and has 1 patch on R lower legshe has been on prednisone with last dose todayshe notes that she was continuing to flare with her psoriasis for weeks as she did not realize she did not wash her knee pads with working outdoors and was continuing to get new areas. she has since discarded the knee padsusing TMC 0.1 cream on the areas on the arm and leg and finishing course of prednisone and getting better. no other bleeding spots, changing moles, or sores that don't want to heal. Lamar Emanuel MD [address] [facility], [address], [place], [address], DARREN Emanuel MD 11/07/2020 17:28:00 01/03/2022 text/html COVID-19 protoco l. Patient and any caregivers present screened to confirm no fever, cough, loss of taste or smell, or shortness of breath. Patient and any caregivers deny current diagnosis or pending testing of COVID-19 or recent exposure to any individual with known or current testing for COVID-19. Patient and caregivers masked while in office. Full body check 3 spots on facex 3 monthsscalyno tx Left cheekbone left side of nose left upper lip no other bleeding spots, changing moles, or sores that don't want to heal. recent sunburn at baseball game on the arms Lamar Emanuel MD [address] [facility], [address], [place], [address], DARREN Emanuel MD 01/08/2022 17:45:05 01/29/2023 text/html Rash Rash on abdomen and right legX 3 months on and offitching, redused triamcinolone BID daily for 3 weeks then one week offseems to get better but then flare back up againinitially she was not sure if related to yard work and sliding her phone in this area under her leggings while outdoors and possibly getting poison ivyno other areas flaring Lamar Emanuel MD [address] [facility], [address], [place], [address], DARREN Emanuel MD 02/04/2023 22:59:22 07/03/2023 text/html Full body skin c heck no other bleeding spots, changing moles, or sores that don't want to heal. Lamar Emanuel MD [address] [place] [address], [address], [place], [address], DARREN Emanuel MD 07/04/2023 23:02:03 08/05/2024 text/html Full body skin c heck Spot L templex monthspatient stated it looks like zit, keeps coming back, no irritation, no painno treatment just moisturiser Spot under L eyex yearswhite bump, gets white head on it, white stuff has come out, no irritation, no painno treatment Spot under R eyex monthssuper itchy, dry patch, no painmoisturiser on area no other bleeding spots, changing moles, or sores that don't want to heal. Lamar Emanuel MD [address] [place] [address], [address], [place], [address], DARREN Emanuel MD 08/10/2024 18:32:52 OBGyn Episode No OBEpisode recorded.
--- OUTSIDE RECORDS SUMMARY | 2024-10-28 16:47 | XMS_ITS | Clinical Summary ---
Author Organization [facility] Address [address] [place] [phone] Care Team Providers Care Dry Primer Powder Blender Name Role Phone Kapil Sommers MD Primary Care Provi nawaf Allergies No known active allergies Medications cholecalciferol [...] by mouth daily 30 tablet 2 10/06/2024 5 Active Active Problems Problem Noted Date Diagnosed [...] (07/07/2024): 04/2015 atyp jcn elijah prolif-L upper chest-[place], 05/2011 atyp cmpd elijah prolif, R ant neck-[place] Actinic keratosis 11/18/2016 03/10/2023 Encounters Date Type Department Care Team Description 10/06/2024 3:15 PM CDT Office Visit [facility] Primary Care at [address] [phone] Kapil Sommers MD Atypical chest pain (Primary Dx); Nausea and vomiting, unspecified vomiting type; Heartburn 10/06/2024 Nurse Triage [facility] Primary Care at [address] [phone] Kapil Sommers MD 09/21/2024 Results Follow-Up [facility] Primary Care at [address] [address] Kapil Sommers MD 09/17/2024 2:52 PM CDT - 09/17/2024 11:59 PM CDT Hospital Encounter [address] [address] Screening for hyperlipidemia; Vitamin D deficiency Discharge Disposition: Discharge to home or self care 09/17/2024 8:15 AM CDT Lab [facility] Outpatient Lab at [address] [phone] 08/29/2024 Telephone [facility] Genetics Department [address] [place] [address] Elle Gamez MS Test Results from Last 3 Months Immunizations Immunization Administration Dates Next Due Influenza, Quadrivalent, Emma l Culture-based MDCK, Preservative Free, Antibiotic Free, Intramuscular 04/14/2021 Influenza, Quadrivalent, Spl it, Preservative Free, Intramuscular 04/24/2023,04/18/2022,04/20/2020,04/21 Influenza, Trivalent, Preser vative Free, Intramuscular 04/25/2024 Influenza, Unspecified 04/25/2024,04/24/2023 Tdap 07/08/2024 ZOSTER Recombinant 11/15/2021,06/28/2021 Surgical History Surgery Date Site/Laterality Comments HYSTERECTOMY 06/25/2004 - 06/24/2005 TVH KNEE ARTHROSCOPY W/ ACL RECONSTRUCTION Right cadaver graft KNEE ARTHROSCOPY W/ LATERAL RELEASE rt knee ACL reconstruction 2021 Medical History Medical History Date Comments Actinic keratosis 11/18/2016 NGOC (generalized anxiety disorder) Depression 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 jcn elijah prolif-L upper chest-[place], 05/2011 atyp cmpd elijah prolif, R ant neck-[place] Family History Medical History Relation Name Comments Alzheimer's disease Father Angel Barreto Dementia Father Angel Barreto Skin cancer Father Angel Barreto Breast cancer Father's Sister 1 Breast cancer Father's Sister 2 Cancer Maternal Grandmother Fern Riley Ovarian cancer Maternal Grandmother Fern Riley Hypertension Mother Cherelle Akins Breast cancer Mother's Sister 1 Ovarian cancer Paternal Grandmother Breast cancer Sister 1 Chikis Frandy Cancer Sister 1 Chikis [place] Depression Sister 1 Chikis [place]emores Hypertension Sister 2 Emilee LaCoax Diabetes Son Edward Elliott Diabetes type I Son Edward Elliott Relation Name Status Comments Father Angel Barreto (Age 78) Father's Sister 1 Alive Father's Sister 2 (Age 75) Maternal Grandfather (Age 75) Maternal Grandmother Fern Riley (Age 61) Mother Cherelle Akins Alive Mother's Sister 1 (Age 81) Mother's Sister 2 Alive Paternal Grandfather (Age 80s) Paternal Grandmother (Age 73) Sister 1 Chikis Lizemores Alive Sister 2 Emilee LaCoax Alive Son Edward Butkovich Alive Social History Tobacco Use Types Packs/Day Years [...] on file Legal Sex Female 11:55 PM RECOVERY OPERATOR HELPER Gender Identity Not on file Sexual Orientation Straight 04/17/2023 9: 18 AM CDT 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 12 oz. , male, Edward , epidural 10/26/98 FTSVD 7 lbs. 5 oz., male, Car , epidural Last Filed Vital Signs Vital Sign Reading Time Taken Comments Blood Pressure 120/74 10/06/2024 3:10 PM CDT Pulse 80 10/06/2024 3:10 PM CDT Temperature 36.6 C (97.9 F) 10/06/2024 3:10 PM CDT Respiratory Rate 18 07/09/2024 9:02 AM RECOVERY OPERATOR HELPER Oxygen Saturation 98% 10/06/2024 3:10 PM CDT Inhaled Oxygen Concentration - - Weight 66.7 kg (147 lb 1.6 oz) 10/06/2024 3:10 P M CDT Height 157.5 cm (5' 2 ) 10/06/2024 3:10 PM CDT Body Mass Index 26.9 10/06/2024 3:10 PM CDT Plan of Treatment Health Maintenance Due Date Last Done Comments Hepatitis B Screening 12/26[birth year]1987 Covid-19 Vaccine ( season) 2024 04/18/2022, 06/12/2021, 09/23/2020, Additional history exists Breast Cancer Screening-Mammogram 12/18/2024 12/19/2023, 12/19/2023, 08/08/2019, Additional history exists Depression Screening 07/08/2025 07/08/2024, 04/24/2023, 11/24/2022, Additional history exists Regular Well Visit/Exam 18-64 07/08/2025 07/08/2024, 05/13/2024, 04/24/2023, Additional history exists Colon Cancer Screening-DNA Stool 06/12/2026 06/12/2023, 05/26/2020 DTaP/Tdap/Td Vaccine (2 - Td or Tdap) 07/08/2034 07/08/2024 Zoster Vaccine Completed 11/15/2021, 06/28/2021 Hepatitis C Screening Completed 04/24/2023 Colon Cancer Screening-FIT Discontinued 06/12/2023 Influenza Vaccine Completed 04/25/2024, , 04/24/2023, Additional history exists Pneumococcal vaccine <65 Aged Out No longer eligible based on patient's age to complete this topic Procedures Procedure Name Priority Date/Time Associated Diagnosis [...] STOOL DNA COLOGUARD Routine 06/12/2023 10:00 AM RECOVERY OPERATOR HELPER Screen for colon cancer HEPATITIS C ANTIBODY [...] ORDERABLE S Final Result Performing Organization Address [facility] Co de Phone Number KESHA REYNOSO [address] [place] [address] * Vitamin D 25 hydroxy (09/17/2024 12:00 PM CDT) Vitamin D 25-OH 65 30 - 80 ng/mL Blood 09/17/2024 12:0 0 PM CDT 09/17/2024 3:32 PM CDT Kapil Sommers MD LAB BLOOD ORDERABLE S Final Result Performing Organization Address City/[facility]/ZIP Co de Phone Number KESHA REYNOSO [phone] [place] [address] * Lipid panel (09/17/2024 12:00 PM CDT) [...] NCEP Expert Panel. Circulation 2004;110:227 3. Fabiano Martinez et al. MIGUEL Cardiol. 2020 October 23;5(5):540-548. doi: [...] BLOOD ORDERABLE S Final Result KESHA REYNOSO [address] Department [place] [address] * (ABNORMAL) Comprehensive metabolic panel (09/17/2024 12:00 [...] Glucose 86 70 - 199 mg/dL CERNER [facility] Comment: Interpretive Data Fasting glucose >/= 126 [...] classification and Diagnosis of Diabetes Diabetes Care 202; 46: S19-S40. Current interpretive data was last [...] MD LAB BLOOD ORDERABLE S Final Result [facility] [address] [place] [address] * HM MAMMOGRAPHY (12/19/2023 8:28 AM CDT) Mammography Normal Lida Dorman MD HEALTH MAINTENANCE F inal Result * Stool DNA - Cologuard (06/12/2023 10:00 AM RECOVERY OPERATOR HELPER) Stool DNA - Cologuard Negative Negative [facility] (CLIA #:[id number]) Comment: NEGATIVE TEST RESULT. A negative Cologuard [...] (Faina Leigh al, N Engl J Med 2014;370(14):0230-4014) The normal value (reference range) for this assay is negative. COLOGUARD RE-SCREENING RECOMMENDATION: Periodic colorectal cancer screening is an important part of preventive healthcare for asymptomatic individuals at average risk for colorectal cancer. Following a negative Cologuard result, the [place] Cancer Society and U.S. Multi-Society Task Force screening guidelines recommend a Cologuard re-screening interval of 3 years. References: [place] Cancer Society Guideline for Colorectal Cancer Screening: https://www.cancer.org/cancer/soima-qxqmvy-ldewfl/ojbgohhgm-yjhfupjyy-ovgxqgs/ac s-rec ommendations.html.; Caleb DK, Travon CR, Cristóbal MossK, Colorectal Cancer Screening: Recommendations for Physicians and Patients from the U.S. Multi-Society Task Force on Colorectal Cancer Screening , Am J Gastroenterology 2017; 112:0748-6390. TEST DESCRIPTION: Composite algorithmic analysis of stool [...] screened with both Cologuard and colonoscopy. (Faina Willis et al, N Engl J Med 2014;370(14):2963-5357.) Cologuard may produce a false negative or false positive result (no colorectal cancer or precancerous polyp present at colonoscopy follow up). A negative Cologuard test result does not guarantee the absence of CRC or advanced adenoma (pre-cancer). The current Cologuard screening interval is every 3 years. ([place] Cancer Society and U.S. Multi-Society Task Force). Cologuard performance data in a 10,000 patient pivotal study using colonoscopy as the reference method can be accessed at the following location: www.[employer]/results. Additional description of the Cologuard test process, warnings and precautions can be found at www.Skubanard.Jott. Stool 06/12/2023 10:0 0 AM RECOVERY OPERATOR HELPER 06/13/2023 3:58 PM RECOVERY OPERATOR HELPER Terese Gomez MD LAB BODY FLUIDS AND [facility] ORDERABLES Final Result [facility] (CLIA #:[id number]) [place] [address] * Hepatitis C antibody Blood (04/24/2023 11:02 [...] MICROBIOLOGY - GEN [place] [address] [address] Department [place] [address] from Last 3 Months or Most Recently Relevant to Health Maintenance Insurance [employer] [place] [facility] PPO [facility] CHOICE PLUS [employer] [place] [facility]PO [facility]NA [facility] PPO Care Teams Dry Primer Powder Blender Relationship Specialty Start Date End Date Kapil Sommers MD [address] [address] PCP - General Family Practice 07/07/24
--- OUTSIDE RECORDS SUMMARY | 2024-10-28 16:47 | XMS_ITS | Encounter Summary ---
Author Organization [facility] Address [address] [place] [address] Care Team Providers Care Cash Applications Clerk Name Role Phone Kapil Sommers MD Primary Care Provi nawaf Encounter Details Date Type Department Care Team (Late st Contact Info) Description 09/21/2024 Results Follow-Up [facility] Primary Care at [address] [place] [address] Kapil Sommers MD [address] [facility] [address] [place] [address] Social History Tobacco Use Types Packs/Day Years Used Date Smoking Tobacco: Never Smokeless Tobacco: Never AUDIT-C Answer Date Recorded Q1: How often [...] on file Legal Sex Female 11:55 PM 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 VETERINARY LABORATORY DIAGNOSTICIAN relayed Dr. Kapil Sommers's message. Patient has no questions at this time. Does message need to be routed? No * Result Encounter Note - Isaura Richards MA - 09/22/2024 11:01 AM CDT Left message on voicemail for patient to call the office. documented in this encounter Plan of Treatment Not on file documented as of this encounter Visit Diagnoses Not on filedocumented in this encounter Care Teams Cash Applications Clerk Relationship Specialty Start Date End Date Kapil Sommers MD [address] [facility] [address] [place] [address] PCP - General Family Practice 07/07/24 documented as of this encounter
[2024-10-28 17:33] VITALS: BP 126/76; PULSE 85; RESP 16; TEMP 36.6; O2SAT 100
--- NOTE | 2024-10-28 18:28 | PC.NURSE ---
Pt. notified this RN at triage desk that she is leaving.
--- OUTSIDE RECORDS SUMMARY | 2024-10-28 19:48 | XMS_ITS | Clinical Summary ---
Author Organization [facility] Address [address] [place] [address] Care Team Providers Care Soft Metals Hand Engraver Name Role Phone Kapil Sommers MD Primary [...] (07/07/2024): 04/2015 atyp jcn elijah prolif-L upper chest-[place], 05/2011 atyp cmpd elijah prolif, R ant neck-[place] Actinic keratosis 11/18/2016 03/10/2023 Encounters Date Type Department Care Team Description 10/06/2024 3:15 PM CDT Office Visit [facility] Primary Care at [address] [address] Kapil Sommers MD Atypical chest pain (Primary Dx); Nausea and vomiting, unspecified vomiting type; Heartburn 10/06/2024 Nurse Triage [facility] Primary Care at [address] [address] Kapil Sommers MD 09/21/2024 Results Follow-Up [facility] Primary Care at [address] [address] Kapil Sommers MD 09/17/2024 2:52 PM CDT - 09/17/2024 11:59 PM CDT Hospital Encounter [address] [address] Screening for hyperlipidemia; Vitamin D deficiency Discharge Disposition: Discharge to home or self care 09/17/2024 8:15 AM CDT Lab [facility] Outpatient Lab at [address] [phone] 08/29/2024 Telephone [facility] Cancer Genetics Department [address] [place] [address] Elle Gamez MS Test Results [...] skin 12/05/20162014 atyp jcn elijah prolif-L upper chest-[place], 05/2011 atyp cmpd elijah prolif, R ant [...] cancer Paternal Grandmother Breast cancer Sister 1 Cihkis Frandy Cancer Sister 1 Chikis [place] Depression Sister 1 Chikis [place] Hypertension Sister 2 Emilee LaCoax Diabetes Son [...] Paternal Grandmother (Age 73) Sister 1 Chikis [place] Alive Sister 2 Emilee LaCoax Alive Son [...] on file Legal Sex Female 11:55 PM PAINTER RAILROAD CAR Gender Identity Not on file Sexual Orientation Straight 04/17/2023 9: 18 AM CDT 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 Not [...] CDT Respiratory Rate 18 07/09/2024 9:02 AM PAINTER RAILROAD CAR Oxygen Saturation 98% 10/06/2024 3:10 PM CDT [...] STOOL DNA COLOGUARD Routine 06/12/2023 10:00 AM PAINTER RAILROAD CAR Screen for colon cancer HEPATITIS C ANTIBODY [...] ORDERABLE S Final Result Performing Organization Address [facility] Co de Phone Number KESHA REYNOSO [address] [place] [address] * Vitamin D 25 hydroxy (09/17/2024 12:00 PM CDT) Vitamin D 25-OH 65 30 - 80 ng/mL Blood 09/17/2024 12:0 0 PM CDT 09/17/2024 3:32 PM CDT Kapil Sommers MD LAB BLOOD ORDERABLE S Final Result Performing Organization Address City/[facility]/ZIP Co de Phone Number KESHA REYNOSO [address] [place] [address] * Lipid panel (09/17/2024 12:00 PM CDT) [...] BLOOD ORDERABLE S Final Result KESHA REYNOSO [address] [address] Department [place] [address] * (ABNORMAL) Comprehensive metabolic panel [...] MD LAB BLOOD ORDERABLE S Final Result [facility] [address] [address] Department [place] [address] * HM MAMMOGRAPHY (12/19/2023 8:28 AM CDT) Mammography Normal Lida Dorman MD HEALTH MAINTENANCE F inal Result * Stool DNA - Cologuard (06/12/2023 10:00 AM PAINTER RAILROAD CAR) Stool DNA - Cologuard Negative Negative [facility] [employer] (CLIA #:[id number]) Comment: NEGATIVE TEST RESULT. A negative Cologuard [...] (Faina Leigh al, N Engl J Med 2014;370(14):2131-9972) The normal value (reference range) for this assay is negative. COLOGUARD RE-SCREENING RECOMMENDATION: Periodic colorectal cancer screening is an important part of preventive healthcare for asymptomatic individuals at average risk for colorectal cancer. Following a negative Cologuard result, the [place] Cancer Society and U.S. Multi-Society Task Force screening guidelines recommend a Cologuard re-screening interval of 3 years. References: [place] Cancer Society Guideline for Colorectal Cancer Screening: https://www.cancer.org/cancer/lcbru-ddtbmn-ttmnlf/kcuyceojg-adrckxrrs-yoxkxbd/ac s-rec ommendations.html.; Caleb DK, Travon CR, Cristóbal MossK, Colorectal Cancer Screening: Recommendations for Physicians and Patients from the U.S. Multi-Society Task Force on Colorectal Cancer Screening , Am J Gastroenterology 2017; 112:8144-7676. TEST DESCRIPTION: Composite algorithmic analysis of stool [...] Willis et al, N Engl J Med 2014;370(14):5323-8941.) Cologuard may produce a false negative or false positive result (no colorectal cancer or precancerous polyp present at colonoscopy follow up). A negative Cologuard test result does not guarantee the absence of CRC or advanced adenoma (pre-cancer). The current Cologuard screening interval is every 3 years. ([place] Cancer Society and U.S. Multi-Society Task Force). Cologuard performance data in a 10,000 patient pivotal study using colonoscopy as the reference method can be accessed at the following location: www.[employer]/results. Additional description of the Cologuard test process, warnings and precautions can be found at www.OKCoinrd.[employer] [place]. Stool 06/12/2023 10:0 0 AM PAINTER RAILROAD CAR 06/13/2023 3:58 PM PAINTER RAILROAD CAR Terese Gomez MD LAB BODY FLUIDS AND [facility] ORDERABLES Final Result [facility] (CLIA #:[id number]) [place] [address] * Hepatitis C antibody Blood (04/24/2023 11:02 [...] GEN [place] [address] [address] Department [place] [address] from Last 3 Months or Most Recently Relevant to Health Maintenance Insurance [employer] IN [facility] PPO [facility] PLUS [employer] IN BLUE [facility] PPO [facility] AETNA [facility] PPO Care Teams Soft Metals Hand Engraver Relationship Specialty Start Date End Date Kapil Sommers MD [address] [address] PCP - General Family Practice 07/07/24
--- OUTSIDE RECORDS SUMMARY | 2024-10-28 19:48 | XMS_ITS | Referral Summary ---
Author Organization [facility] Address [address] [place] [phone] Care Team Providers Care Stock Broker Name Role Phone Kapil Sommers MD Primary Care Provi nawaf Encounters Date Type Department Care Team Description 10/06/2024 3:15 PM CDT Office Visit [facility] Primary Care at [address] [phone] Kapil Sommers MD Atypical chest pain (Primary Dx); Nausea and vomiting, unspecified vomiting type; Heartburn 10/06/2024 Nurse Triage [facility] Primary Care at [address] [phone] Kapil Sommers MD 09/21/2024 Results Follow-Up [facility] Primary Care at [address] [phone] Kapil Sommers MD 09/17/2024 2:52 PM CDT - 09/17/2024 11:59 PM CDT Hospital Encounter [address] [address] Screening for hyperlipidemia; Vitamin D deficiency Discharge Disposition: Discharge to home or self care 09/17/2024 8:15 AM CDT Lab [facility] Outpatient Lab at [address] [phone] 08/29/2024 Telephone [facility] Cancer Genetics Department [address] [place] [phone] Elle Gamez, MS Test Results from Last [...] (07/07/2024): 04/2015 atyp jcn elijah prolif-L upper chest-[place], 05/2011 atyp cmpd elijah prolif, R ant [...] on file Legal Sex Female 11:55 PM ADMINISTRATIVE ASSISTANT OFFICE MANAGER Gender Identity Not on file Sexual Orientation Straight 04/17/2023 9: 18 AM CDT 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 Not on file Last Filed Vital Signs Vital Sign Reading Time Taken Comments Blood Pressure 120/74 10/06/2024 3:10 PM CDT Pulse 80 10/06/2024 3:10 PM CDT Temperature 36.6 C (97.9 F) 10/06/2024 3:10 PM CDT Respiratory Rate 18 07/09/2024 9:02 AM ADMINISTRATIVE ASSISTANT OFFICE MANAGER Oxygen Saturation 98% 10/06/2024 3:10 PM CDT [...] STOOL DNA COLOGUARD Routine 06/12/2023 10:00 AM ADMINISTRATIVE ASSISTANT OFFICE MANAGER Screen for colon cancer HEPATITIS C ANTIBODY [...] ORDERABLE S Final Result Performing Organization Address [facility] Co de Phone Number KESHA REYNOSO [address] [facility] [employer] [place] [address] * Vitamin D 25 hydroxy (09/17/2024 12:00 PM CDT) Vitamin D 25-OH 65 30 - 80 ng/mL Blood 09/17/2024 12:0 0 PM CDT 09/17/2024 3:32 PM CDT Kapil Sommers MD LAB BLOOD ORDERABLE S Final Result Performing Organization Address [facility] [[email or web address]] de Phone Number KESHA REYNOSO [address] [facility] [employer] [place] [address] * Lipid panel (09/17/2024 12:00 PM CDT) [...] MD LAB BLOOD ORDERABLE S Final Result [facility] [address] [address] Department [place] [address] * (ABNORMAL) Comprehensive metabolic panel (09/17/2024 12:00 [...] BLOOD ORDERABLE S Final Result KESHA REYNOSO [address] [address] Department [place] [address] * HM MAMMOGRAPHY (12/19/2023 8:28 AM CDT) Mammography Normal Lida Dorman MD HEALTH MAINTENANCE F inal Result * Stool DNA - Cologuard (06/12/2023 10:00 AM ADMINISTRATIVE ASSISTANT OFFICE MANAGER) Stool DNA - Cologuard Negative Negative [employer] (CLIA #:[id number]) Comment: NEGATIVE TEST RESULT. A negative Cologuard [...] (Faina Leigh al, N Engl J Med 2014;370(14):2098-4730) The normal value (reference range) for this assay is negative. COLOGUARD RE-SCREENING RECOMMENDATION: Periodic colorectal cancer screening is an important part of preventive healthcare for asymptomatic individuals at average risk for colorectal cancer. Following a negative Cologuard result, the [place] [employer] Society and U.S. Multi-Society Task Force screening guidelines recommend a Cologuard re-screening interval of 3 years. References: [place] [employer] Guideline for Colorectal Cancer Screening: https://www.cancer.org/cancer/pqjom-gjdwlk-rbxyfw/cxgcmffou-wxqnnmtud-oherbvz/ac s-rec ommendations.html.; Caleb DK, Travon CR, Cristóbal MossK, Colorectal Cancer Screening: Recommendations for Physicians and Patients from the U.S. Multi-Society Task Force on Colorectal Cancer Screening , Am J Gastroenterology 2017; 112:5532-5799. TEST DESCRIPTION: Composite algorithmic analysis of stool [...] (Faina Leigh al, N Engl J Med 2014;370(14):4652-4009.) Cologuard may produce a false negative or false positive result (no colorectal cancer or precancerous polyp present at colonoscopy follow up). A negative Cologuard test result does not guarantee the absence of CRC or advanced adenoma (pre-cancer). The current Cologuard screening interval is every 3 years. ([place] [employer] Society and U.S. Multi-Society Task Force). Cologuard performance data in a 10,000 patient pivotal study using colonoscopy as the reference method can be accessed at the following location: www.[facility].com/results. Additional description of the Cologuard test process, warnings and precautions can be found at www.colHalobandrd.com. Stool 06/12/2023 10:0 0 AM ADMINISTRATIVE ASSISTANT OFFICE MANAGER 06/13/2023 3:58 PM ADMINISTRATIVE ASSISTANT OFFICE MANAGER Terese Gomez MD LAB BODY FLUIDS AND ST OOLS ORDERABLES Final Result Performing Organization Address [facility] Co de Phone Number [facility] (CLIA #:[id number]) [address] [place] [address] * Hepatitis C antibody Blood (04/24/2023 11:02 [...] ERAL ORDERABLES Final Result Performing Organization Address [facility] [[email or web address]] de Phone Number [facility] [address] [address] Department [place] [address] from Last 3 Months or Most Recently Relevant to Health Maintenance Insurance [facility] [place] [facility] [facility] P[facility] Care Teams Stock Broker Relationship Specialty Start Date End Date Kapil Sommers MD [address] [place] [address] PCP - General Family Practice 07/07/24
--- OUTSIDE RECORDS SUMMARY | 2024-10-28 19:48 | XMS_ITS | Encounter Summary ---
Author Organization [facility] Healthcare Address [address] [place] [address] Care Team Providers Care Installation Helper Name Role Phone Kapil Sommers MD Primary Care Provi nawaf Encounter Details Date Type Department Care Team (Late st Contact Info) Description 09/21/2024 Results Follow-Up [facility] Primary Care at [address] [place] [phone] Kapil Sommers MD [address] [facility] [address] [place] [address] Social History Tobacco Use Types [...] on file Legal Sex Female 11:55 PM GEM CUTTER Gender Identity Not on file Sexual Orientation Straight 04/17/2023 9: 18 AM CDT 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 SILO OPERATOR relayed Dr. Kapil Sommers's message. Patient has [...] on filedocumented in this encounter Care Teams Installation Helper Relationship Specialty Start Date End Date Kapil Sommers MD [address] [facility] [address] [place] [address] PCP - General Family Practice 07/07/24 documented as of this encounter
== END 2024-10-28 20:19 | disposition left against medical advice (07) ==
LOC: ANHED 19:46
PROVIDERS: Emergency Provider Preventive Medicine Aerospace Medicine
DX: K21.9 Gastro-esophageal reflux disease without esophagitis (principal)
CPT/HCPCS: 71046; 93005; 99199